=== PATIENT | female | born 1995 | race African-American/Black ===

== ENCOUNTER 2016-09-27 11:56 | Emergency (ER) | payer SELFPAY ==
[2016-09-27 12:41] LABS: Bilirubin Negative (Negative); Blood, Urine Negative (Negative); Glucose, Urine (Dipstick) Negative (Negative); Ketone, Urine Trace mg/dL (Negative); Nitrite Negative (Negative); Protein, Urine (Dipstick) Trace mg/dL (Neg-Trace)
[2016-09-27] MEDS ORDERED: Ibuprofen 200 MG TAB ONE (13:45)
--- NOTE | 2016-09-27 13:51 | ERRECORD ---
[facility] EMERGENCY RECORD HPI COUGH (13:33 JROB) CHIEF COMPLAINT: Patient presents for evaluation of cough, Patient presents for evaluation of Congestion, Sore throat. HISTORIAN: History provided by patient, 21 year old female with cough, sore throat, sneezing, body aches, subjective fever that started yesterday. Her 3 year old daughter had runny nose recently, but no other symptoms. QUALITY: Denies choking sensation. TIME COURSE: Gradual onset of symptoms. ASSOCIATED WITH: No associated chest pain, No associated diarrhea, Associated with fever, No associated peripheral edema, No associated wheezing. EXACERBATED BY: Patient's condition exacerbated by nothing. RELIEVED BY: Patient's condition relieved by nothing. ROS (13:35 JROB) CONSTITUTIONAL: Historian reports fever. EYES: Historian denies vision changes. ENT: Historian reports sore throat. CARDIOVASCULAR: Historian denies chest pain, denies syncope. RESPIRATORY: Historian reports cough, denies wheezing. GI: Historian denies diarrhea, denies vomiting. GENITOURINARY FEMALE: Historian denies dysuria, reports frequency. period is 4 days late. MUSCULOSKELETAL: Historian reports myalgias. SKIN: Historian denies rash. HEMO/LYMPHATIC: Historian denies abnormal blood clotting. ALLERGIC/IMMUNOLOGIC: Historian denies frequent infections. NOTES: All systems reviewed, negative except as described above. PAST MEDICAL HISTORY MEDICAL HISTORY: Flu vaccine not up to date, Tetanus immunization up to date, Pneumococcal vaccine not up to date, Notes: HX OF OVARIAN CYST, Flu vaccine not up to date, Tetanus immunization up to date, Pneumococcal vaccine not up to date, Past medical history includes renal disease, CYST ON KIDNEYS. Anemia , takes Iron tablets. (12:09 CAWO) FEMALE SURGICAL HISTORY: Surgical history of section. (12:09 CAWO) PSYCHIATRIC HISTORY: Psychiatric history includes, bipolar disorder, depression. (12:09 CAWO) SOCIAL HISTORY: Patient denies alcohol use, Patient denies drug use, Patient has no smoking history, Lives at home, with family, Patient denies alcohol use, Patient denies drug use, Patient has no smoking history. (12:09 CAWO) FAMILY HISTORY: Family history is non-contributory to this case. (12:09 CAWO) NOTES: Nursing records reviewed, Agree with nursing records, Medication list reviewed. (13:37 JROB) &a-1R&a+25V*p+0X*f8660M*c202B*c15G*c2P*p-0X&a-25V&a+1R Name: Gabby Foy : 1995 F21 MedRec: [id number] AcctNum: [id number] Prepared: Gia Sep 27, 2016 13:58 by Interface Page 1 of 3 pMD [facility] EMERGENCY RECORD KNOWN ALLERGIES No Known Drug Allergies CURRENT MEDICATIONS (12:08 CAWO) None VITAL SIGNS VITAL SIGNS: BP: 136/77, Pulse: 84, Resp: 16, Temp: 98.0 (Oral), Pain: 0, O2 sat: 99 on Room Air, Time: 09/27/2016 12:07. (12:07 CAWO) BP: 132/77, Pulse: 79, Resp: 16, Temp: 98.1, Pain: 0, O2 sat: 98 on RA, Time: 09/27/2016 13:53. (13:53 CKNU) PHYSICAL EXAM (13:36 JROB) CONSTITUTIONAL: Vital Signs Reviewed, Patient afebrile, Pulse normal, Blood pressure normal, Respiratory rate normal, Normal pulse oximetry, Patient alert and oriented to person, place and time, Nursing notes reviewed. HEAD: Head exam normal, Head exam included findings of head atraumatic. EYES: Eye exam normal, Pupils equally round and reactive to light, Extraocular muscles intact. ENT: Nose exam normal, Pharynx, injected bilaterally, no swelling, Mouth exam normal. NECK: Neck exam normal, no cervical adenopathy, no tenderness. RESPIRATORY CHEST: Breath sounds clear, No wheezing, No rales, No rhonchi. CARDIOVASCULAR: Cardiovascular assessment normal, Cardiovascular exam included findings of heart rate regular rate and rhythm, Heart sounds normal. ABDOMEN FEMALE: Abdominal exam included findings of abdomen nontender, no distension, no peritoneal signs. BACK: Back exam normal, Back exam included findings of normal inspection. UPPER EXTREMITY: Upper extremity exam normal, Upper extremity exam included findings of inspection normal, Motor strength normal, Sensation intact. NEURO: Neuro exam findings include patient oriented to person, place and time, no focal motor deficits, no focal sensory deficits. SKIN: Skin exam normal, Skin exam included findings of skin warm, dry, no rash. LYMPHATIC: Lymphatic exam normal. MEDICATION ADMINISTRATION SUMMARY Drug Name: ibuprofen, Dose Ordered: 600 mg, Route: Oral, Status: Given, Time: 13:47 09/27/2016, Detailed record available in Medication Service section. DOCTOR NOTES TEXT: Patient afebrile, well appearing. Ordered flu, strep, &a-1R&a+25V*p+0X*x7762S*c202B*c15G*c2P*p-0X&a-25V&a+1R Name: Gabby Foy : 1995 F21 MedRec: [id number] AcctNum: [id number] Prepared: Gia Sep 27, 2016 13:58 by Interface Page 2 of 3 pMD [facility] EMERGENCY RECORD UA, urine HCG. (13:37 JROB) Workup negative, patient is not . She likely has a viral infection. Discussed continuing OTX meds as needed. Will d/c home to f/u in clinic. (13:38 JROB) PATIENT STATUS: Patient has improved since arrival to emergency department. (13:38 JROB) PATIENT PLAN: The patient will be discharged, The patient will follow up with primary care physician. (13:38 JROB) DATA REVIEWED: Lab data reviewed. (13:38 JROB) PROBLEM LIST No recorded problems DIAGNOSIS DIFFERENTIAL: Based on history, exam and ancillary studies if indicated: Impression: viral pharyngitis, Impression: group A stretococcal pharyngitis, Impression: pharyngitis, Impression: Viral Infection, Influenza, UTI, , Diagnoses considered are not limited to those documented above. (13:39 JROB) FINAL: PRIMARY: Viral infection. (13:40 JROB) PRESCRIPTION No recorded prescriptions DISPOSITION PATIENT: Disposition Type: Discharge, Disposition: *Discharge Home. (13:40 JROB) Patient left the department. (13:53 CKNU) Eden: AMANDAO=CARY Engel, Nancy CKNU=CARY Mckeon, Betsy JROB=MD Julio C, Jose &a-1R&a+25V*p+0X*z5220Y*c202B*c15G*c2P*p-0X&a-25V&a+1R Name: Gabby Foy : 1995 F21 MedRec: [id number] AcctNum: [id number] Prepared: Gia Sep 27, 2016 13:58 by Interface Page 3 of 3 pMD MTDD
--- NOTE | 2016-09-27 13:54 | PICIS ---
[facility] EMERGENCY RECORD TRIAGE (12:08 CAWO) TRIAGE NOTES: PT reports congestion, sore throat. PT also c/o LMP sep 01. (12:08 CAWO) PATIENT: NAME: Gabby Foy, AGE: 21, GENDER: female, : Wed1995, TIME OF GREET: Sun Sep 27, 2016 11:57, PREFERRED LANGUAGE: [place], ETHNICITY: Not or , ECODE BILLING MAP: [facility], SSN: [id number], Zip Code: [address], KG WEIGHT: 54.43, PHONE: , , , PERSON ID: [id number]. (12:08 CAWO) COMPLAINT: Congestion. (12:08 CAWO) ADMISSION: URGENCY: 4 Non Urgent, ADMISSION SOURCE: Home, TRANSPORT: Walk-in, BED: ER -05. (12:08 CAWO) IMMUNIZATIONS: Flu vaccine up to date, Tetanus immunization up to date. (12:09 CAWO) SIRS SCORING: Heart Rate 55-109 (0), Temp range 96.8-101.1 (0), respiratory rate 12-24 (0), Mental Status altered: no (0), Infection or Suspected Infection: No. (12:09 CAWO) PROVIDERS: TRIAGE NURSE: Nancy Engel RN. (12:08 CAWO) VITAL SIGNS: BP 136/77, Pulse 84, Resp 16, Temp 98.0, (Oral), Pain 0, O2 Sat 99, on Room Air, Time 09/27/2016 12:07. (12:07 CAWO) PREVIOUS VISIT ALLERGIES: No Known Drug Allergies. (12:08 CAWO) No Known Drug Allergies. (12:09 CAWO) KNOWN ALLERGIES No Known Drug Allergies CURRENT MEDICATIONS (12:08 CAWO) None VITAL SIGNS VITAL SIGNS: BP: 136/77, Pulse: 84, Resp: 16, Temp: 98.0 (Oral), Pain: 0, O2 sat: 99 on Room Air, Time: 09/27/2016 12:07. (12:07 CAWO) BP: 132/77, Pulse: 79, Resp: 16, Temp: 98.1, Pain: 0, O2 sat: 98 on RA, Time: 09/27/2016 13:53. (13:53 CKNU) NURSING ASSESSMENT: ENT (12:11 CKNU) CONSTITUTIONAL: Patient arrives ambulatory, Gait steady, History obtained from patient, Patient appears comfortable, Patient cooperative, Patient alert, Oriented to person, place and time, Skin warm, Skin dry, Skin normal in color, Mucous membranes pink, Mucous membranes moist, Patient, with poor personal hygiene, Patient complains of congestion, pt reports nausea and congestion since Wednesday. reports dry cough. no smoking, drinking, or drug use. Pt reports feeling chills yesterday, denies night sweats, felt feverish but did not take temperature. denies vomiting, constipation, diarrhea, denies pain. PAIN: Patient rates pain as 0 out of 10. ENT: Ear assessment findings include ear normal to inspection, no drainage from ears, Nasal assessment findings include nose normal to &a-1R&a+25V*p+0X*c8760U*c202B*c15G*c2P*p-0X&a-25V&a+1R Name: Gabby Foy : 1995 F21 MedRec: [id number] AcctNum: [id number] Prepared: Gia Sep 27, 2016 13:58 by Interface Page 1 of 8 pMD [facility] EMERGENCY RECORD inspection, Sinuses normal, Nasal mucosa, swollen, no bleeding, no discharge, Mouth and throat assessment findings include mouth inspection normal, Uvula normal, Tonsils, swollen +2 on the right, Mucous membranes pink, and moist, Able to swallow, Speech normal, no associated fever, no associated headache. RESPIRATORY/CHEST: Breath sounds clear, Respiratory assessment findings include respiratory effort easy, Respirations regular, Conversing normally, Neck and chest exam findings include trachea midline, Chest expansion equal, Chest movement symmetrical, no signs of distress, no retractions noted, Associated with cough, dry, no associated fever. SAFETY: Side rails up, Cart/Stretcher in lowest position, Family at bedside, Call light within reach, Hospital ID band on. NURSING PROCEDURE: DISCHARGE NOTE (13:53 CKNU) DISCHARGE: Patient discharged to home, ambulating without assistance, family driving, accompanied by //partner, Summary of Care printed/ provided, Transition record given to patient, Discharge instructions given to patient, Simple or moderate discharge teaching performed, by CARY Meyer, Prescriptions given and instructions on side effects given, Above person(s) verbalized understanding of discharge instructions and follow-up care, Patient treated and evaluated by physician. BELONGINGS: Belongings and valuables with patient upon arrival to the Emergency Department include:, Belongings and valuables with patient at time of discharge include:, Belongings remain with patient, Valuables remain with patient. SAFETY: Side rails up, Cart/Stretcher in lowest position, Family at bedside, Call light within reach, Hospital ID band on. VITAL SIGNS: BP: 132, / 77, Pulse: 79, Resp: 16, Temp: 98.1, Pain: 0, O2 sat: 98, on: RA. NURSING PROCEDURE: NURSE NOTES (13:55 CKNU) NURSES NOTES: Notes: away from pt bedside d/t code blue. ORDER DETAILS Order Name: Culture, Urine, Status: Active, Time: 12:26 09/27/2016, User: KIM, - Ordered for: MD Bunch Joseph, - Entered by: MD Bunch Joseph - Gia Sep 27, 2016 12:26, - Quantity: 1, Order Name: Influenza A&B Ag Screen, Status: Active, Time: 12:26 09/27/2016, User: KIM, - Ordered for: MD Bunch Joseph, - Entered by: MD Bunch Joseph - Gia Sep 27, 2016 12:26, - Quantity: 1, Order Name: Test, Urine (BHCG), Status: Active, Time: 12:26 &a-1R&a+25V*p+0X*j4263W*c202B*c15G*c2P*p-0X&a-25V&a+1R Name: Gabby Foy : 1995 F21 MedRec: [id number] AcctNum: [id number] Prepared: Gia Sep 27, 2016 13:58 by Interface Page 2 of 8 pMD [facility] EMERGENCY RECORD 09/27/2016, User: KIM, - Ordered for: MD Bunch Joseph, - Entered by: MD Bunch Joseph - Sun Sep 27, 2016 12:26, - Quantity: 1, Order Name: Strep Group A Screen, Status: Active, Time: 12:26 09/27/2016, User: KIM, - Ordered for: MD Bunch Joseph, - Entered by: MD Bunch Joseph - Sun Sep 27, 2016 12:26, - Quantity: 1, Order Name: Urinalysis w/ Rflx Microscopic, Status: Active, Time: 12:26 09/27/2016, User: KIM, - Ordered for: MD Bunch Joseph, - Entered by: MD Bunch Joseph - Sun Sep 27, 2016 12:26, - Quantity: 1. MEDICATION ADMINISTRATION SUMMARY Drug Name: ibuprofen, Dose Ordered: 600 mg, Route: Oral, Status: Given, Time: 13:47 09/27/2016, Detailed record available in Medication Service section. MEDICATION SERVICE (13:47 JROB) ibuprofen: Order: ibuprofen - Dose: 600 mg : Oral Schedule: Now Ordered by: Jose Bunch MD Entered by: MD Gia Rivas Sep 27, 2016 12:25 , Acknowledged by: CARY Garcia Sep 27, 2016 12:29 Documented as given by: CARY Bailey Sep 27, 2016 13:47 Patient, Medication, Dose, Route and Time verified prior to administration. Amount given: 600mg, Site: Medication administered P.O., Correct patient, time, route, dose and medication confirmed prior to administration, Patient advised of actions and side-effects prior to administration, Allergies confirmed and medications reviewed prior to administration. HPI COUGH (13:33 JROB) CHIEF COMPLAINT: Patient presents for evaluation of cough, Patient presents for evaluation of Congestion, Sore throat. HISTORIAN: History provided by patient, 21 year old female with cough, sore throat, sneezing, body aches, subjective fever that started yesterday. Her 3 year old daughter had runny nose recently, but no other symptoms. QUALITY: Denies choking sensation. TIME COURSE: Gradual onset of symptoms. ASSOCIATED WITH: No associated chest pain, No associated diarrhea, Associated with fever, No associated peripheral edema, No associated wheezing. EXACERBATED BY: Patient's condition exacerbated by nothing. RELIEVED BY: Patient's condition relieved by nothing. &a-1R&a+25V*p+0X*l3046L*c202B*c15G*c2P*p-0X&a-25V&a+1R Name: Gabby Foy : 1995 F21 MedRec: [id number] AcctNum: [id number] Prepared: Gia Sep 27, 2016 13:58 by Interface Page 3 of 8 pMD [facility] EMERGENCY RECORD ROS (13:35 JROB) CONSTITUTIONAL: Historian reports fever. EYES: Historian denies vision changes. ENT: Historian reports sore throat. CARDIOVASCULAR: Historian denies chest pain, denies syncope. RESPIRATORY: Historian reports cough, denies wheezing. GI: Historian denies diarrhea, denies vomiting. GENITOURINARY FEMALE: Historian denies dysuria, reports frequency. period is 4 days late. MUSCULOSKELETAL: Historian reports myalgias. SKIN: Historian denies rash. HEMO/LYMPHATIC: Historian denies abnormal blood clotting. ALLERGIC/IMMUNOLOGIC: Historian denies frequent infections. NOTES: All systems reviewed, negative except as described above. PAST MEDICAL HISTORY MEDICAL HISTORY: Flu vaccine not up to date, Tetanus immunization up to date, Pneumococcal vaccine not up to date, Notes: HX OF OVARIAN CYST, Flu vaccine not up to date, Tetanus immunization up to date, Pneumococcal vaccine not up to date, Past medical history includes renal disease, CYST ON KIDNEYS. Anemia , takes Iron tablets. (12:09 CAWO) FEMALE SURGICAL HISTORY: Surgical history of section. (12:09 CAWO) PSYCHIATRIC HISTORY: Psychiatric history includes, bipolar disorder, depression. (12:09 CAWO) SOCIAL HISTORY: Patient denies alcohol use, Patient denies drug use, Patient has no smoking history, Lives at home, with family, Patient denies alcohol use, Patient denies drug use, Patient has no smoking history. (12:09 CAWO) FAMILY HISTORY: Family history is non-contributory to this case. (12:09 CAWO) NOTES: Nursing records reviewed, Agree with nursing records, Medication list reviewed. (13:37 JROB) PHYSICAL EXAM (13:36 JROB) CONSTITUTIONAL: Vital Signs Reviewed, Patient afebrile, Pulse normal, Blood pressure normal, Respiratory rate normal, Normal pulse oximetry, Patient alert and oriented to person, place and time, Nursing notes reviewed. HEAD: Head exam normal, Head exam included findings of head atraumatic. EYES: Eye exam normal, Pupils equally round and reactive to light, Extraocular muscles intact. ENT: Nose exam normal, Pharynx, injected bilaterally, no swelling, Mouth exam normal. NECK: Neck exam normal, no cervical adenopathy, no tenderness. RESPIRATORY CHEST: Breath sounds clear, No wheezing, No rales, No rhonchi. &a-1R&a+25V*p+0X*q9124S*c202B*c15G*c2P*p-0X&a-25V&a+1R Name: Gabby oFy : 1995 F21 MedRec: [id number] AcctNum: [id number] Prepared: Gia Sep 27, 2016 13:58 by Interface Page 4 of 8 pMD [facility] EMERGENCY RECORD CARDIOVASCULAR: Cardiovascular assessment normal, Cardiovascular exam included findings of heart rate regular rate and rhythm, Heart sounds normal. ABDOMEN FEMALE: Abdominal exam included findings of abdomen nontender, no distension, no peritoneal signs. BACK: Back exam normal, Back exam included findings of normal inspection. UPPER EXTREMITY: Upper extremity exam normal, Upper extremity exam included findings of inspection normal, Motor strength normal, Sensation intact. NEURO: Neuro exam findings include patient oriented to person, place and time, no focal motor deficits, no focal sensory deficits. SKIN: Skin exam normal, Skin exam included findings of skin warm, dry, no rash. LYMPHATIC: Lymphatic exam normal. LAB INTERPRETATION (13:38 JROB) INTERPRETATION: I reviewed the lab results, Urinalysis abnormal, positive for ketones, Urine HCG negative, Rapid strep negative, Influenza negative. EVENTS TRANSFER: Triage to Emergency Emergency Room -05. (Gia Sep 27, 2016 12:08 CAWO) Removed from Emergency Emergency Room -05. (13:53 CKNU) O2SAT INTERPRETATION (13:37 JROB) O2SAT: Single pulse oximetry, Oxygen saturation 99%, on room air, Oxygen saturation interpretation: Normal, No intervention required. DOCTOR NOTES TEXT: Patient afebrile, well appearing. Ordered flu, strep, UA, urine HCG. (13:37 JROB) Workup negative, patient is not . She likely has a viral infection. Discussed continuing OTX meds as needed. Will d/c home to f/u in clinic. (13:38 JROB) PATIENT STATUS: Patient has improved since arrival to emergency department. (13:38 JROB) PATIENT PLAN: The patient will be discharged, The patient will follow up with primary care physician. (13:38 JROB) DATA REVIEWED: Lab data reviewed. (13:38 JROB) PROBLEM LIST No recorded problems DIAGNOSIS DIFFERENTIAL: Based on history, exam and ancillary studies if indicated: Impression: viral pharyngitis, Impression: group A stretococcal pharyngitis, Impression: pharyngitis, Impression: Viral Infection, Influenza, UTI, &a-1R&a+25V*p+0X*c3868U*c202B*c15G*c2P*p-0X&a-25V&a+1R Name: Gabby Foy : 1995 F21 MedRec: [id number] AcctNum: [id number] Prepared: Gia Sep 27, 2016 13:58 by Interface Page 5 of 8 pMD [facility] EMERGENCY RECORD , Diagnoses considered are not limited to those documented above. (13:39 JROB) FINAL: PRIMARY: Viral infection. (13:40 JROB) DISPOSITION PATIENT: Disposition Type: Discharge, Disposition: *Discharge Home. (13:40 JROB) Patient left the department. (13:53 CKNU) INSTRUCTION (13:40 JROB) DISCHARGE: VIRAL SYNDROME (ADULT). FOLLOWUP: Follow up with Primary Care Physician in 5 days. SPECIAL: Follow-up with your PCP We hope you feel better soon! We are always happy to take care of you and your family! Return to the ER immediately for any new, concerning, or worsening symptoms. PRESCRIPTION No recorded prescriptions IMAGING (13:56 CKNU) *DISCHARGE INSTRUCTIONS RECEIPT: Image captured from scanner. *SUPPLY CHARGE SHEET: Image captured from scanner. ADMIN (13:40 JROB) DIGITAL SIGNATURE: MD Bunch Joseph. RESULTS (13:26 JROB) MICROBIOLOGY: Strep Group A Screen: [id number] Collection DT: Gia Sep 27, 2016 12:40, See comment below , @ ER ROOM#: ER-05 Source: Throat Spec Desc: PENDING, Strep A Negative CDC recommends , confirmation by , culture on all , negative , Strep negative line 1 Group A , Streptococcus rapid , screens. Please , order , Strep negative line 2 a throat culture if , clinically , indicated. , Rapid Strep Screen:Throat Negative . Influenza A&B Ag Screen: [id number] Collection DT: Gia Sep 27, 2016 12:40, See comment below , @ ER ROOM#: ER-05 Source: Nasal swab Spec Desc: , &a-1R&a+25V*p+0X*l7405F*c202B*c15G*c2P*p-0X&a-25V&a+1R Name: Gabby Foy : 1995 F21 MedRec: [id number] AcctNum: [id number] Prepared: Gia Sep 27, 2016 13:58 by Interface Page 6 of 8 pMD [facility] EMERGENCY RECORD Influenza A Antigen: NEGATIVE for the , presence of , INFLUENZA A Antigen , Influenza B Antigen: NEGATIVE for the , presence of , INFLUENZA B Antigen , The rapid Flu A&B test can distinguish between influenza A , Influenza A&B Ag Screen See comment below , and B viruses, but it does not differentiate influenza , Influenza A&B Ag Screen See comment below , subtypes. , Influenza A&B Ag Screen See comment below , Influenza A&B Ag Screen See comment below , Influenza A&B Ag Screen See comment below , Influenza A&B Ag Screen See comment below , characteristics of this device with human specimens infected , Influenza A&B Ag Screen See comment below , with the 2008 H1N1 influenza virus have not been , Influenza A&B Ag Screen See comment below , established. For example: this test cannot distinguish , Influenza A&B Ag Screen See comment below , influenza infections caused by novel H1N1 influenza A , Influenza A&B Ag Screen See comment below , viruses versus seasonal influenza A viruses. , Influenza A&B Ag Screen See comment below , , Influenza A&B Ag Screen See comment below , A negative result does not exclude influenza virus , Influenza A&B Ag Screen See comment below , infection; therefore, if more conclusive testing is desired, , Influenza A&B Ag Screen See comment below , follow up confirmatory testing is warranted., Influenza A&B Ag Screen See comment below . LABORATORY: Test, Urine (BHCG) Collection DT: Gia Sep 27, 2016 12:35, Test - Urine (BHCG) NEGATIVE , Range (NEGATIVE), Method of sensitivity- Indeterminant: results should be repeated, after 48 hours. Positive: results may be detected as early as 4-5 days before a first missed menses. Elimination of BHCG-, Elimination following first trimester D&C: 29-44 Days , Elimination following term : 8-24 Days , Specific [place] 1.032 , Range (1.002-1.036), A dilute urine specimen may, not contain customer account representative levels of hCG. If is still, suspected, a first morning urine &a-1R&a+25V*p+0X*s8558B*c202B*c15G*c2P*p-0X&a-25V&a+1R Name: Gabby Foy : 1995 F21 MedRec: [id number] AcctNum: [id number] Prepared: Gia Sep 27, 2016 13:58 by Interface Page 7 of 8 [facility] EMERGENCY RECORD specimen OR a random blood specimen should, be obtained from the patient 48-72 hours later and re-tested. , . Urinalysis w/ Rflx Microscopic Collection DT: Gia Sep 27, 2016 12:35, Color Yellow , Range (Yellow), Clarity SL HAZY , Range (Clear), Specific [place], Urine 1.032 , Range (1.002-1.036), pH, Urine 6.0 , Range (5.0-9.0), Leukocyte Negative , Range (Negative), Nitrite Negative , Range (Negative), Protein, Urine (Dipstick) Trace mg/dL, Range (Neg-Trace), Glucose, Urine (Dipstick) Negative mg/dL, Range (Negative), *Ketone, Urine Trace - H mg/dL, Range (Negative), Urobilinogen 1.0 mg/dL, Range (0.2-1.0), Bilirubin Negative , Range (Negative), Blood, Urine Negative , Range (Negative). Eden: CAWO=CARY Engel, Nancy CKNU=CARY Mckeon, Betsy JROB=MD Julio C, Jose &a-1R&a+25V*p+0X*c2903M*c202B*c15G*c2P*p-0X&a-25V&a+1R Name: Gabby Foy : 1995 F21 MedRec: [id number] AcctNum: [id number] Prepared: Gia Sep 27, 2016 13:58 by Interface Page 8 of 8 pMD MTDD
== END 2016-09-27 13:53 | disposition home or self-care (01) ==
LOC: NAV ERS 11:56
DX: B34.9 Viral infection, unspecified (principal); D64.9 Anemia, unspecified; F31.9 Bipolar disorder, unspecified
CPT/HCPCS: 81003; 81025; 87086; 87430; 99283

== ENCOUNTER 2017-04-01 20:57 | Emergency (ER) | payer SELFPAY | END 2017-04-01 21:43 | disposition home or self-care (01) | LOC: NAV ERS 20:57 | DX: H60.92 Unspecified otitis externa, left ear (principal); F31.9 Bipolar disorder, unspecified; Z87.891 Personal history of nicotine dependence | CPT/HCPCS: 99282 ==

== ENCOUNTER 2018-03-07 16:48 | Emergency (ER) | payer SELFPAY ==
[2018-03-07 17:46] LABS: #Lymphocytes 1.2 thou/uL (1.20-3.40); #Monocytes 0.6 thou/uL (0.11-0.59); %Basophils 0.6 % (0.0-1.0); %Eosinophils 0.1 % (0.0-10.0); %Monocytes 7.1 % (0.0-10.0); %Neutrophils 77.2 % (42.0-75.0); Hemoglobin 11.4 g/dL (12.0-16.0); Mean Corpuscular HGB CONC 33.1 g/dL (32.0-36.0); Mean Corpuscular Hemoglobin 25.7 pg (27.0-31.0); Mean Corpuscular Volume 77.8 fL (78.0-98.0); Mean Platelet Volume 7.1 fL (7.4-10.4); Platelet Count 180 thou/uL (130-400); RBC Distribution Width 15.2 % (11.5-14.5); Red Blood Cell (RBC) Count 4.42 mill/uL (4.20-5.40); White Blood Cell (WBC) Count 7.8 thou/uL (4.8-10.8)
[2018-03-07 17:49] LABS: Bilirubin Small (Negative); Blood, Urine Negative (Negative); Clarity Clear (Clear); Glucose, Urine (Dipstick) Negative (Negative); Leukocyte Negative (Negative); Nitrite Negative (Negative); Protein, Urine (Dipstick) 30 mg/dL (Neg-Trace); Specific Gravity, Urine 1.025 (1.005-1.030)
[2018-03-07 17:53] LABS: Bacteria/HPF Rare-Few HPF (None Seen); RBC/HPF 0-3 HPF (0-3)
[2018-03-07 18:07] LABS: ALT (SGPT) 7 U/L (8-55); AST (SGOT) 14 U/L (5-34); Albumin 3.9 g/dL (3.5-5.0); Alkaline Phosphatase 81 U/L (40-150); Anion Gap 14 mmol/L (10-20); BUN (Urea Nitrogen) 7 mg/dL (7.0-18.7); Bilirubin, Total 0.3 mg/dL (0.2-1.2); Calc. Creatinine Clearance 0 mL/min (70-130); Calcium 9.9 mg/dL (7.8-10.44); Carbon Dioxide 23 mmol/L (22-29); Chloride 103 mmol/L (98-107); Estimated GFR-MDRD Greater than 90; Globulin 3.6 g/dL (2.4-3.5); Glucose 102 mg/dL (70-105); Potassium 3.9 mmol/L (3.5-5.1); Protein, Total 7.5 g/dL (6.0-8.3); Sodium 136 mmol/L (136-145)
== END 2018-03-07 18:16 | disposition home or self-care (01) ==
LOC: NAV ERS 16:48
DX: O99.89 Other specified diseases and conditions complicating pregnancy, childbirth and the puerperium (principal); R55 Syncope and collapse; O99.011 Anemia complicating pregnancy, first trimester; O26.831 Pregnancy related renal disease, first trimester; Q61.3 Polycystic kidney, unspecified; O99.341 Other mental disorders complicating pregnancy, first trimester; F31.9 Bipolar disorder, unspecified; Z3A.13 13 weeks gestation of pregnancy
CPT/HCPCS: 36416; 80053; 81003; 81015; 84702; 85025; 93005

== ENCOUNTER 2018-03-17 12:53 | Emergency (ER) | payer SELFPAY ==
[2018-03-17 14:02] LABS: #Lymphocytes 1.4 thou/uL (1.20-3.40); #Monocytes 0.6 thou/uL (0.11-0.59); #Neutrophils 5.5 thou/uL (1.40-6.50); %Basophils 0.4 % (0.0-1.0); %Eosinophils 0.4 % (0.0-10.0); %Lymphocytes 18.3 % (21.0-51.0); %Monocytes 7.5 % (0.0-10.0); %Neutrophils 73.4 % (42.0-75.0); Hemoglobin 11.3 g/dL (12.0-16.0); Mean Corpuscular Hemoglobin 25.7 pg (27.0-31.0); Mean Corpuscular Volume 80.2 fL (78.0-98.0); Mean Platelet Volume 7.5 fL (7.4-10.4); Platelet Count 180 thou/uL (130-400); RBC Distribution Width 15.6 % (11.5-14.5); Red Blood Cell (RBC) Count 4.39 mill/uL (4.20-5.40); White Blood Cell (WBC) Count 7.5 thou/uL (4.8-10.8)
[2018-03-17 14:32] LABS: ALT (SGPT) 7 U/L (8-55); AST (SGOT) 15 U/L (5-34); Albumin 3.7 g/dL (3.5-5.0); Alkaline Phosphatase 70 U/L (40-150); Anion Gap 13 mmol/L (10-20); BUN (Urea Nitrogen) 6 mg/dL (7.0-18.7); Bilirubin, Total 0.4 mg/dL (0.2-1.2); Calc. Creatinine Clearance 0 mL/min (70-130); Calcium 9.6 mg/dL (7.8-10.44); Carbon Dioxide 22 mmol/L (22-29); Chloride 101 mmol/L (98-107); Estimated GFR-MDRD Greater than 90; Globulin 3.5 g/dL (2.4-3.5); Glucose 98 mg/dL (70-105); Potassium 3.6 mmol/L (3.5-5.1); Protein, Total 7.2 g/dL (6.0-8.3); Sodium 132 mmol/L (136-145)
[2018-03-17] MEDS ORDERED: Sodium Chloride 0.9% 1,000 ML ONE (14:50)
[2018-03-17] MEDS ORDERED: Acetaminophen 500 MG TAB ONE (14:50)
[2018-03-17 15:54] LABS: Bilirubin Negative (Negative); Blood, Urine Negative (Negative); Clarity Clear (Clear); Glucose, Urine (Dipstick) Negative (Negative); Leukocyte Trace (Negative); Nitrite Negative (Negative); Protein, Urine (Dipstick) Negative (Neg-Trace)
[2018-03-17 16:06] LABS: Bacteria/HPF Rare-Few HPF (None Seen); RBC/HPF 0-3 HPF (0-3); WBC/HPF 0-3 HPF (0-3)
--- NOTE | 2018-03-17 16:24 | ULT ---
OB ULTRASOUND: 03/17/18 HISTORY: Left lower quadrant and back pain. FINDINGS: A single live intrauterine gestation is seen with measurements corresponding to an estimated gestatio nal of 15 weeks, 0 days and DNE at 09/08/18. The estimated weight measures 104 grams or 4 oz. measurements are as follows: BPD 2.75 cm 14 weeks, 6 days HC 10.39 cm 14 weeks, 6 days AC 8.77 cm 15 weeks, 0 days FL 1.46 cm 14 weeks, 2 days heart rate measures 129 beats per minute. Placenta is posteriorly located with placenta previa. WANDA is 7 cm. IMPRESSION: 1. Single live IUP of 15 weeks estimated gestational age and DEN at 09/08/18. 2. WANDA is 7 cm. 3. Placenta previa. 1. POS: FRANCA
== END 2018-03-17 16:24 | disposition home or self-care (01) ==
LOC: NAV ERS 12:53
DX: S39.012A Strain of muscle, fascia and tendon of lower back, initial encounter (principal); N30.00 Acute cystitis without hematuria; J01.80 Other acute sinusitis; E86.0 Dehydration; E87.1 Hypo-osmolality and hyponatremia; D64.9 Anemia, unspecified; F31.9 Bipolar disorder, unspecified; Z79.899 Other long term (current) drug therapy; X58.XXXA Exposure to other specified factors, initial encounter
CPT/HCPCS: 76805; 80053; 81003; 81015; 85025; 96360; J7050

== ENCOUNTER 2018-04-11 12:14 | Emergency (ER) | payer MEDICAID, OTHER ==
[2018-04-11] MEDS ORDERED: Sodium Chloride 0.9% 1,000 ML ONE ×2 (12:36→13:48)
[2018-04-11 12:55] LABS: ALT (SGPT) 7 U/L (8-55); AST (SGOT) 14 U/L (5-34); Albumin 3.4 g/dL (3.5-5.0); Alkaline Phosphatase 87 U/L (40-150); Anion Gap 13 mmol/L (10-20); BUN (Urea Nitrogen) 6 mg/dL (7.0-18.7); Bilirubin, Total 0.3 mg/dL (0.2-1.2); Calc. Creatinine Clearance 0 mL/min (70-130); Calcium 9.3 mg/dL (7.8-10.44); Carbon Dioxide 20 mmol/L (22-29); Chloride 105 mmol/L (98-107); Estimated GFR-MDRD Greater than 90; Globulin 3.5 g/dL (2.4-3.5); Glucose 113 mg/dL (70-105); Potassium 3.4 mmol/L (3.5-5.1); Protein, Total 6.9 g/dL (6.0-8.3); Sodium 135 mmol/L (136-145)
[2018-04-11 12:58] LABS: #Lymphocytes 1.2 thou/uL (1.20-3.40); #Monocytes 0.4 thou/uL (0.11-0.59); #Neutrophils 4.6 thou/uL (1.40-6.50); %Basophils 0.4 % (0.0-1.0); %Eosinophils 0.5 % (0.0-10.0); %Lymphocytes 19.6 % (21.0-51.0); %Monocytes 6.2 % (0.0-10.0); %Neutrophils 73.3 % (42.0-75.0); Hemoglobin 10.6 g/dL (12.0-16.0); Mean Corpuscular HGB CONC 33.3 g/dL (32.0-36.0); Mean Corpuscular Hemoglobin 26.9 pg (27.0-31.0); Mean Corpuscular Volume 80.8 fL (78.0-98.0); Mean Platelet Volume 6.2 fL (7.4-10.4); Platelet Count 168 thou/uL (130-400); RBC Distribution Width 13.9 % (11.5-14.5); Red Blood Cell (RBC) Count 3.96 mill/uL (4.20-5.40); White Blood Cell (WBC) Count 6.3 thou/uL (4.8-10.8)
[2018-04-11] MEDS ORDERED: Ondansetron HCl/PF 4 MG/2 ML Vial ONE (13:48)
[2018-04-11 13:50] LABS: Bilirubin Negative (Negative); Blood, Urine Negative (Negative); Clarity Slightly Cloudy (Clear); Glucose, Urine (Dipstick) Negative (Negative); Leukocyte Small (Negative); Nitrite Negative (Negative); Protein, Urine (Dipstick) Negative (Neg-Trace)
[2018-04-11 13:52] LABS: Bacteria/HPF Rare-Few HPF (None Seen); RBC/HPF 0-3 HPF (0-3); WBC/HPF 0-3 HPF (0-3)
== END 2018-04-11 15:01 | disposition home or self-care (01) ==
LOC: NAV ERS 12:14
DX: E86.0 Dehydration (principal); R55 Syncope and collapse; R11.10 Vomiting, unspecified; D64.9 Anemia, unspecified; F31.9 Bipolar disorder, unspecified; Q61.3 Polycystic kidney, unspecified; Z79.899 Other long term (current) drug therapy
CPT/HCPCS: 80053; 81003; 81015; 85025; 93005; 96361; 96374; J2405; J7050

== ENCOUNTER 2018-07-11 12:47 | Emergency (ER) | payer OTHER ==
[2018-07-11 14:11] LABS: Bilirubin Small (Negative); Blood, Urine Small (Negative); Clarity Clear (Clear); Glucose, Urine (Dipstick) 100 mg/dL (Negative); Leukocyte Small (Negative); Nitrite Negative (Negative); Protein, Urine (Dipstick) 100 mg/dL (Neg-Trace); Urobilinogen > or = 8.0 mg/dL (0.2-1.0)
[2018-07-11 14:13] LABS: #Basophils 0.1 thou/uL (0.0-0.2); #Eosinphils 0.1 thou/uL (0.0-0.7); #Lymphocytes 0.7 thou/uL (1.20-3.40); #Monocytes 0.7 thou/uL (0.11-0.59); %Basophils 0.8 % (0.0-1.0); %Eosinophils 0.9 % (0.0-10.0); %Lymphocytes 11.1 % (21.0-51.0); %Monocytes 10.8 % (0.0-10.0); %Neutrophils 76.4 % (42.0-75.0); Hemoglobin 9.7 g/dL (12.0-16.0); Mean Corpuscular HGB CONC 30.7 g/dL (32.0-36.0); Mean Corpuscular Hemoglobin 24.2 pg (27.0-31.0); Mean Corpuscular Volume 78.6 fL (78.0-98.0); Mean Platelet Volume 6.2 fL (7.4-10.4); Platelet Count 117 thou/uL (130-400); RBC Distribution Width 14.4 % (11.5-14.5); Red Blood Cell (RBC) Count 3.99 mill/uL (4.20-5.40); White Blood Cell (WBC) Count 6.6 thou/uL (4.8-10.8)
[2018-07-11 14:15] LABS: Hypochromia SLIGHT = 6-15 cells (100X) (0-5/hpf); MDiff Complete? YES; PLT Morphology Comment Appears Adequate
[2018-07-11] MEDS ORDERED: Ondansetron PF 4 MG/2 ML Vial ONE (14:22)
[2018-07-11 14:27] LABS: Bacteria/HPF 2+ HPF (None Seen); RBC/HPF 0-3 HPF (0-3); Specific Gravity, Urine 1.034 (1.002-1.036); Squamous Epithelial 21-50 HPF (0-3); WBC/HPF 0-3 HPF (0-3)
[2018-07-11 14:30] LABS: ALT (SGPT) 8 U/L (8-55); AST (SGOT) 20 U/L (5-34); Albumin 3.5 g/dL (3.5-5.0); Alkaline Phosphatase 123 U/L (40-150); Anion Gap 14 mmol/L (10-20); BUN (Urea Nitrogen) Less than 4 mg/dL (7.0-18.7); Bilirubin, Total 0.8 mg/dL (0.2-1.2); Calc. Creatinine Clearance 0 mL/min (70-130); Carbon Dioxide 21 mmol/L (22-29); Chloride 104 mmol/L (98-107); Estimated GFR-MDRD Greater than 90; Globulin 3.7 g/dL (2.4-3.5); Glucose 81 mg/dL (70-105); Lipase 35 U/L (8-78); Potassium 3.6 mmol/L (3.5-5.1); Protein, Total 7.2 g/dL (6.0-8.3); Sodium 135 mmol/L (136-145)
== END 2018-07-11 16:03 | disposition home or self-care (01) ==
LOC: NAV ERS 12:47
DX: O21.9 Vomiting of pregnancy, unspecified (principal); O99.013 Anemia complicating pregnancy, third trimester; O99.343 Other mental disorders complicating pregnancy, third trimester; F31.9 Bipolar disorder, unspecified; Z3A.31 31 weeks gestation of pregnancy
CPT/HCPCS: 80053; 81003; 81015; 83690; 85025; 96374; J2405

== ENCOUNTER 2018-08-01 21:40 | Emergency (ER) | payer OTHER ==
[2018-08-01] MEDS ORDERED: Ondansetron ODT 4 MG TAB ONE (22:24)
== END 2018-08-01 22:49 | disposition short-term general hospital (02) ==
LOC: NAV ERS 21:40
DX: O26.93 Pregnancy related conditions, unspecified, third trimester (principal); R10.9 Unspecified abdominal pain; O99.013 Anemia complicating pregnancy, third trimester; D50.9 Iron deficiency anemia, unspecified; O99.343 Other mental disorders complicating pregnancy, third trimester; F31.9 Bipolar disorder, unspecified; Z3A.34 34 weeks gestation of pregnancy
CPT/HCPCS: 99285; Q0162

== ENCOUNTER 2018-09-09 20:25 | Emergency (ER) | payer OTHER ==
[2018-09-09] MEDS ORDERED: Acetaminophen 325 MG TAB ONE (20:54)
[2018-09-09 21:10] LABS: Bilirubin Small (Negative); Blood, Urine Large (Negative); Glucose, Urine (Dipstick) Negative (Negative); Leukocyte Moderate (Negative); Nitrite Negative (Negative); Protein, Urine (Dipstick) 100 mg/dL (Neg-Trace); Specific Gravity, Urine 1.025 (1.005-1.030)
[2018-09-09 21:22] LABS: Clarity SL HAZY (Clear)
[2018-09-09 21:24] LABS: RBC/HPF GREATER THAN 50-TNTC HPF (0-3)
[2018-09-09 21:25] LABS: Bacteria/HPF Rare-Few HPF (None Seen)
[2018-09-09 21:26] LABS: #Basophils 0.1 thou/uL (0.0-0.2); #Eosinphils 0.1 thou/uL (0.0-0.7); #Monocytes 0.5 thou/uL (0.11-0.59); #Neutrophils 3.6 thou/uL (1.40-6.50); %Basophils 0.9 % (0.0-1.0); %Eosinophils 1.9 % (0.0-10.0); %Lymphocytes 31.7 % (21.0-51.0); %Monocytes 7.2 % (0.0-10.0); %Neutrophils 58.2 % (42.0-75.0); Mean Corpuscular HGB CONC 29.5 g/dL (32.0-36.0); Mean Corpuscular Volume 74.4 fL (78.0-98.0); Mean Platelet Volume 6.5 fL (7.4-10.4); Platelet Count 323 thou/uL (130-400); RBC Distribution Width 17.6 % (11.5-14.5); Red Blood Cell (RBC) Count 4.54 mill/uL (4.20-5.40); White Blood Cell (WBC) Count 6.3 thou/uL (4.8-10.8)
[2018-09-09 21:37] LABS: ALT (SGPT) 13 U/L (8-55); AST (SGOT) 18 U/L (5-34); Alkaline Phosphatase 120 U/L (40-150); Anion Gap 14 mmol/L (10-20); BUN (Urea Nitrogen) 8 mg/dL (7.0-18.7); Bilirubin, Total 0.4 mg/dL (0.2-1.2); Calc. Creatinine Clearance 0 mL/min (70-130); Calcium 9.9 mg/dL (7.8-10.44); Carbon Dioxide 25 mmol/L (22-29); Chloride 105 mmol/L (98-107); Estimated GFR-MDRD Greater than 90; Globulin 4.1 g/dL (2.4-3.5); Glucose 92 mg/dL (70-105); Lipase 42 U/L (8-78); Potassium 3.8 mmol/L (3.5-5.1); Protein, Total 8.1 g/dL (6.0-8.3); Sodium 140 mmol/L (136-145)
== END 2018-09-09 22:18 | disposition home or self-care (01) ==
LOC: NAV ERS 20:25
DX: O90.89 Other complications of the puerperium, not elsewhere classified (principal); O99.89 Other specified diseases and conditions complicating pregnancy, childbirth and the puerperium; R10.30 Lower abdominal pain, unspecified; O99.345 Other mental disorders complicating the puerperium; F41.9 Anxiety disorder, unspecified; F31.9 Bipolar disorder, unspecified; O90.81 Anemia of the puerperium; Z79.899 Other long term (current) drug therapy
CPT/HCPCS: 80053; 81003; 81015; 83690; 85025; 87086; 99284

== ENCOUNTER 2019-01-13 15:48 | Emergency (ER) | payer OTHER | END 2019-01-13 16:33 | disposition home or self-care (01) | LOC: NAV ERS 15:48 | DX: S90.01XA Contusion of right ankle, initial encounter (principal); F31.9 Bipolar disorder, unspecified; F32.9 Major depressive disorder, single episode, unspecified; F17.210 Nicotine dependence, cigarettes, uncomplicated; W22.8XXA Striking against or struck by other objects, initial encounter | CPT/HCPCS: 99281 ==

== ENCOUNTER 2019-07-25 16:43 | Emergency (ER) | payer SELFPAY ==
[2019-07-25] MEDS ORDERED: Acetaminophen 500 MG TAB ONE (17:28)
--- NOTE | 2019-07-25 17:40 | RAD ---
RADIOGRAPH LEFT FOOT 3VIEWS: DATE: 07/25/2019 HISTORY: 24-year-old female with nontraumatic left foot pain. FINDINGS: There is no evidence of fracture or dislocation. There is no evidence of periostitis, permeative lesi on, osteolytic lesion, or osteoblastic lesion. The joint spaces are maintained without erosions or significant osteophytes. IMPRESSION: Normal
== END 2019-07-25 18:18 | disposition home or self-care (01) ==
LOC: NAV ERS 16:43
DX: M79.672 Pain in left foot (principal); D50.9 Iron deficiency anemia, unspecified; F31.9 Bipolar disorder, unspecified; F17.210 Nicotine dependence, cigarettes, uncomplicated; Q61.3 Polycystic kidney, unspecified

== ENCOUNTER 2019-10-01 20:27 | Emergency (ER) | payer SELFPAY ==
[2019-10-01] MEDS ORDERED: Ondansetron ODT 4 MG TAB ONE (20:49)
[2019-10-01] MEDS ORDERED: Ibuprofen 200 MG TAB ONE (21:06)
[2019-10-01] MEDS ORDERED: Acetaminophen 325 MG TAB ONE (21:06)
[2019-10-01] MEDS ORDERED: Oseltamivir 75 MG CAP ONE (21:33)
== END 2019-10-01 21:33 | disposition home or self-care (01) ==
LOC: NAV ERS 20:27
DX: J10.1 Influenza due to other identified influenza virus with other respiratory manifestations (principal); D50.9 Iron deficiency anemia, unspecified; Q61.3 Polycystic kidney, unspecified; F31.9 Bipolar disorder, unspecified; F17.210 Nicotine dependence, cigarettes, uncomplicated
CPT/HCPCS: 87804; 99283; Q0162

== ENCOUNTER 2019-12-23 14:46 | Emergency (ER) | payer SELFPAY ==
[2019-12-23 15:29] LABS: Bilirubin Negative (Negative); Blood, Urine Negative (Negative); Clarity Clear (Clear); Glucose, Urine (Dipstick) Negative (Negative); Leukocyte Negative (Negative); Nitrite Negative (Negative); Protein, Urine (Dipstick) Negative (Neg-Trace)
[2019-12-23 15:32] LABS: Pregnancy Test - Urine (BHCG) Negative (Negative); Pregu Control Background? CLEAR/WHITE (CLR/WHITE); Pregu Control Bar Appear? YES (CONTROL BAR); Specific Gravity 1.025 (1.002-1.036)
== END 2019-12-23 15:48 | disposition home or self-care (01) ==
LOC: NAV ERS 14:46
DX: R10.30 Lower abdominal pain, unspecified (principal); D50.9 Iron deficiency anemia, unspecified; Q61.3 Polycystic kidney, unspecified; F31.9 Bipolar disorder, unspecified; F17.210 Nicotine dependence, cigarettes, uncomplicated; N83.209 Unspecified ovarian cyst, unspecified side; Z79.899 Other long term (current) drug therapy
CPT/HCPCS: 81003; 81025; 99284

== ENCOUNTER 2020-04-07 22:00 | Emergency (ER) | payer OTHER, SELFPAY ==
[2020-04-07] MEDS ORDERED: Ondansetron ODT 4 MG TAB ONE (22:55)
[2020-04-07 22:59] LABS: #Lymphocytes 2.3 thou/uL (1.20-3.40); #Neutrophils 2.4 thou/uL (1.40-6.50); %Basophils 1.1 % (0.0-1.0); %Eosinophils 0.8 % (0.0-10.0); %Lymphocytes 43.8 % (21.0-51.0); %Monocytes 9.4 % (0.0-10.0); Hemoglobin 10.1 g/dL (12.0-16.0); Manual Diff?? NO; Mean Corpuscular HGB CONC 29.1 g/dL (32.0-36.0); Mean Corpuscular Hemoglobin 22.2 pg (27.0-31.0); Mean Corpuscular Volume 76.3 fL (78.0-98.0); Mean Platelet Volume 7.2 fL (7.4-10.4); Platelet Count 219 thou/uL (130-400); RBC Distribution Width 14.9 % (11.5-14.5); Red Blood Cell (RBC) Count 4.56 mill/uL (4.20-5.40); White Blood Cell (WBC) Count 5.3 thou/uL (4.8-10.8)
[2020-04-07 23:00] LABS: #Basophils 0.1 thou/uL (0.0-0.2); #Monocytes 0.5 thou/uL (0.11-0.59)
[2020-04-07 23:02] LABS: Microcytosis SLIGHT = 6-15 cells (100X) (0-5/hpf)
== END 2020-04-07 23:47 | disposition home or self-care (01) ==
LOC: NAV ERS 22:00
DX: N93.8 Other specified abnormal uterine and vaginal bleeding (principal); R11.2 Nausea with vomiting, unspecified; D50.9 Iron deficiency anemia, unspecified; F31.9 Bipolar disorder, unspecified; F17.210 Nicotine dependence, cigarettes, uncomplicated; Z79.899 Other long term (current) drug therapy
CPT/HCPCS: 84702; 85025; 99284; Q0162

== ENCOUNTER 2020-10-26 03:54 | Emergency (ER) | payer BC, OTHER ==
[2020-10-26 04:19] LABS: Bilirubin Negative (Negative); Blood, Urine Large (Negative); Clarity Cloudy (Clear); Glucose, Urine (Dipstick) Negative (Negative); Ketone, Urine Negative (Negative); Leukocyte Moderate (Negative); Nitrite Negative (Negative); Protein, Urine (Dipstick) > or equal to 300 mg/dL (Neg-Trace); Specific Gravity, Urine 1.028 (1.002-1.036); Urobilinogen 0.2 mg/dL (Less than 2)
[2020-10-26 04:20] LABS: Pregnancy Test - Urine (BHCG) Negative (Negative); Pregu Control Background? CLEAR/WHITE (CLR/WHITE); Pregu Control Bar Appear? YES (CONTROL BAR); Specific Gravity 1.028 (1.002-1.036)
[2020-10-26 04:21] LABS: RBC/HPF 21-50 HPF (0-3); WBC/HPF Greater Than 50 HPF (0-3)
[2020-10-26 04:22] LABS: Bacteria/HPF 1+ HPF (None Seen); Squamous Epithelial 0-3 HPF (0-3)
[2020-10-26] MEDS ORDERED: Sulfameth/Trimethoprim DS 800-160mg TAB ONE (04:34)
== END 2020-10-26 04:40 | disposition home or self-care (01) ==
LOC: NAV ERS 03:54
DX: N39.0 Urinary tract infection, site not specified (principal); D50.9 Iron deficiency anemia, unspecified; F17.210 Nicotine dependence, cigarettes, uncomplicated; Z79.899 Other long term (current) drug therapy
CPT/HCPCS: 81003; 81015; 81025; 87086; 99284

== ENCOUNTER 2020-11-13 20:17 | Emergency (ER) | payer BC ==
[2020-11-13] MEDS ORDERED: Ketorolac Tromethamine 30 MG/ML VIAL ONE (20:48)
[2020-11-13] MEDS ORDERED: Sodium Chloride 0.9% 1,000 ML ONE (20:48)
[2020-11-13] MEDS ORDERED: Metoclopramide HCl 10 MG TAB ONE (20:48)
[2020-11-13] MEDS ORDERED: diphenhydrAMINE 50 MG/ML VIAL ONE (20:48)
[2020-11-13] MEDS ORDERED: Prochlorperazine 10 MG/2 ML VIAL ONE (21:00)
[2020-11-13 21:19] LABS: BHCG - Serum Negative (NEGATIVE); Pregs Control Bar Appear? YES (CONTROL BAR)
[2020-11-13 21:30] LABS: Anion Gap 12 mmol/L (10-20); BUN (Urea Nitrogen) 5 mg/dL (7.0-18.7); Calc. Creatinine Clearance 0 mL/min (70-130); Calcium 9.2 mg/dL (7.8-10.44); Carbon Dioxide 25 mmol/L (22-29); Chloride 103 mmol/L (98-107); Glucose 98 mg/dL (70-105); Potassium 3.4 mmol/L (3.5-5.1); Sodium 137 mmol/L (136-145)
[2020-11-13 21:44] LABS: Hemoglobin 9.3 g/dL (12.0-16.0); Mean Corpuscular HGB CONC 30.5 g/dL (32.0-36.0); Mean Corpuscular Hemoglobin 22.1 pg (27.0-31.0); Mean Corpuscular Volume 72.3 fL (78.0-98.0); Mean Platelet Volume 6.8 fL (7.4-10.4); Platelet Count 219 thou/uL (130-400); RBC Distribution Width 14.8 % (11.5-14.5); Red Blood Cell (RBC) Count 4.23 mill/uL (4.20-5.40); White Blood Cell (WBC) Count 4.6 thou/uL (4.8-10.8)
[2020-11-13 21:54] LABS: #Lymphocytes 1.8 thou/uL (1.20-3.40); #Monocytes 0.3 thou/uL (0.11-0.59); #Neutrophils 2.2 thou/uL (1.40-6.50); %Eosinophils 0.6 % (0.0-10.0); %Lymphocytes 41.2 % (21.0-51.0); %Monocytes 7.6 % (0.0-10.0); %Neutrophils 49.5 % (42.0-75.0); MDiff Complete? YES; Microcytosis SLIGHT = 6-15 cells (100X) (0-5/hpf); Ovalocytes SLIGHT = 2-5 cells (100X) (0-1/hpf)
== END 2020-11-13 22:17 | disposition home or self-care (01) ==
LOC: NAV ERS 20:17
DX: D64.9 Anemia, unspecified (principal); R51.9 Headache, unspecified; R42 Dizziness and giddiness; H53.9 Unspecified visual disturbance; F17.210 Nicotine dependence, cigarettes, uncomplicated
CPT/HCPCS: 80048; 84703; 85025; 93005; 96365; 96375; J0780; J1200; J1885; J7050

== ENCOUNTER 2020-12-13 19:49 | Emergency (ER) | payer BC ==
[2020-12-14 21:43] LABS: SARS-CoV-2 PCR by NAA Not Detected (NotDetected)
== END 2020-12-13 20:38 | disposition home or self-care (01) ==
LOC: NAV ERS 19:49
DX: M79.10 Myalgia, unspecified site (principal); R19.7 Diarrhea, unspecified; R50.9 Fever, unspecified; Z20.822 Contact with and (suspected) exposure to COVID-19; D50.9 Iron deficiency anemia, unspecified; F17.210 Nicotine dependence, cigarettes, uncomplicated
CPT/HCPCS: 87635; 87804; 99284; U0003; U0005

== ENCOUNTER 2021-04-10 18:51 | Emergency (ER) | payer BC ==
[2021-04-10 19:40] LABS: Bilirubin Negative (Negative); Blood, Urine Negative (Negative); Clarity Clear (Clear); Glucose, Urine (Dipstick) Negative (Negative); Ketone, Urine Trace mg/dL (Negative); Leukocyte Negative (Negative); Nitrite Negative (Negative); Protein, Urine (Dipstick) Trace mg/dL (Neg-Trace); Specific Gravity, Urine 1.025 (1.005-1.030); Urobilinogen 0.2 mg/dL (Less than 2)
[2021-04-10 19:41] LABS: Pregnancy Test - Urine (BHCG) Negative (Negative); Pregu Control Background? CLEAR/WHITE (CLR/WHITE); Pregu Control Bar Appear? YES (CONTROL BAR); Specific Gravity 1.025 (1.002-1.036)
[2021-04-11 18:29] LABS: SARS-CoV-2 PCR by NAA Not Detected (NotDetected)
== END 2021-04-10 20:58 | disposition home or self-care (01) ==
LOC: NAV ERS 18:51
DX: J06.9 Acute upper respiratory infection, unspecified (principal); R10.9 Unspecified abdominal pain; Z20.822 Contact with and (suspected) exposure to COVID-19; D50.9 Iron deficiency anemia, unspecified; F17.210 Nicotine dependence, cigarettes, uncomplicated
CPT/HCPCS: 81003; 81025; 87807; 99283; U0003; U0005

== ENCOUNTER 2021-05-16 21:58 | Emergency (ER) | payer BC | END 2021-05-16 22:42 | disposition home or self-care (01) | LOC: NAV ERS 21:58 | DX: R05 Cough (principal); B97.4 Respiratory syncytial virus as the cause of diseases classified elsewhere; F17.210 Nicotine dependence, cigarettes, uncomplicated | CPT/HCPCS: 99283 ==

== ENCOUNTER 2021-07-16 11:55 | Emergency (ER) | payer BC ==
[2021-07-16 12:25] LABS: #Basophils 0.1 thou/uL (0.0-0.2); #Lymphocytes 1.1 thou/uL (1.20-3.40); #Monocytes 0.3 thou/uL (0.11-0.59); #Neutrophils 1.7 thou/uL (1.40-6.50); %Basophils 1.6 % (0.0-1.0); %Eosinophils 0.9 % (0.0-10.0); %Lymphocytes 34.5 % (21.0-51.0); %Monocytes 10.3 % (0.0-10.0); %Neutrophils 52.8 % (42.0-75.0); Hemoglobin 8.2 g/dL (12.0-16.0); Mean Corpuscular HGB CONC 28.9 g/dL (32.0-36.0); Mean Corpuscular Hemoglobin 20.5 pg (27.0-31.0); Mean Platelet Volume 6.2 fL (7.4-10.4); Platelet Count 165 thou/uL (130-400); RBC Distribution Width 16.3 % (11.5-14.5); Red Blood Cell (RBC) Count 4.01 mill/uL (4.20-5.40); White Blood Cell (WBC) Count 3.1 thou/uL (4.8-10.8)
[2021-07-16 12:37] LABS: BHCG - Serum Negative (NEGATIVE); Pregs Control Bar Appear? YES (CONTROL BAR)
[2021-07-16 12:44] LABS: ALT (SGPT) 12 U/L (8-55); AST (SGOT) 24 U/L (5-34); Albumin 3.7 g/dL (3.5-5.0); Alkaline Phosphatase 79 U/L (40-110); Anion Gap 9 mmol/L (10-20); BUN (Urea Nitrogen) 5 mg/dL (7.0-18.7); Bilirubin, Total 0.3 mg/dL (0.2-1.2); Calc. Creatinine Clearance 0 mL/min (70-130); Calcium 8.9 mg/dL (7.8-10.44); Carbon Dioxide 25 mmol/L (22-29); Chloride 105 mmol/L (98-107); Globulin 3.8 g/dL (2.4-3.5); Glucose 90 mg/dL (70-105); Lipase 34 U/L (8-78); Potassium 3.4 mmol/L (3.5-5.1); Protein, Total 7.5 g/dL (6.0-8.3); Sodium 136 mmol/L (136-145)
[2021-07-16 12:58] LABS: Bilirubin Negative (Negative); Blood, Urine Moderate (Negative); Clarity Clear (Clear); Glucose, Urine (Dipstick) Negative (Negative); Ketone, Urine Negative (Negative); Leukocyte Negative (Negative); Nitrite Negative (Negative); Protein, Urine (Dipstick) Negative (Neg-Trace); Specific Gravity, Urine 1.015 (1.005-1.030); Urobilinogen 0.2 mg/dL (Less than 2); pH, Urine 7.5 (5.0-9.0)
[2021-07-16 13:03] LABS: RBC/HPF 0-3 HPF (0-3); Squamous Epithelial 0-3 HPF (0-3)
== END 2021-07-16 13:15 | disposition home or self-care (01) ==
LOC: NAV ERS 11:55
DX: N92.0 Excessive and frequent menstruation with regular cycle (principal); D50.9 Iron deficiency anemia, unspecified; F17.210 Nicotine dependence, cigarettes, uncomplicated
CPT/HCPCS: 80053; 81003; 81015; 83690; 84703; 85025; 99284

== ENCOUNTER 2021-08-19 10:38 | Emergency (ER) | payer BC | END 2021-08-19 11:43 | disposition home or self-care (01) | LOC: NAV ERS 10:38 | DX: R05.9 Cough, unspecified (principal); D50.9 Iron deficiency anemia, unspecified; F17.210 Nicotine dependence, cigarettes, uncomplicated; Z79.899 Other long term (current) drug therapy | CPT/HCPCS: 99283 ==

== ENCOUNTER 2022-06-25 07:34 | Emergency (ER) | payer BC ==
[2022-06-25] MEDS ORDERED: Boostrix 0.5 ML (Tdap) VIAL (>/=7 yrs of age) ONE (08:25)
[2022-06-25 08:29] LABS: Bilirubin Negative (Negative); Blood, Urine Negative (Negative); Clarity Clear (Clear); Glucose, Urine (Dipstick) Negative (Negative); Ketone, Urine Negative (Negative); Leukocyte Negative (Negative); Nitrite Negative (Negative); Protein, Urine (Dipstick) Negative (Neg-Trace); Specific Gravity, Urine 1.015 (1.005-1.030); Urobilinogen 0.2 mg/dL (Less than 2); pH, Urine 6.5 (5.0-9.0)
[2022-06-25 08:33] LABS: Pregnancy Test - Urine (BHCG) Negative (Negative); Pregu Control Background? CLEAR/WHITE (CLR/WHITE); Pregu Control Bar Appear? YES (CONTROL BAR); Specific Gravity 1.015 (1.002-1.036)
[2022-06-25 08:39] LABS: #Basophils 0.1 thou/uL (0.0-0.2); #Lymphocytes 1.5 thou/uL (1.20-3.40); #Monocytes 0.4 thou/uL (0.11-0.59); #Neutrophils 2.4 thou/uL (1.40-6.50); %Basophils 1.3 % (0.0-1.0); %Eosinophils 0.7 % (0.0-10.0); %Lymphocytes 34.7 % (21.0-51.0); %Monocytes 9.3 % (0.0-10.0); Hemoglobin 9.2 g/dL (12.0-16.0); Mean Corpuscular HGB CONC 28.9 g/dL (32.0-36.0); Mean Corpuscular Hemoglobin 20.4 pg (27.0-31.0); Mean Corpuscular Volume 70.8 fL (78.0-98.0); Mean Platelet Volume 6.9 fL (7.4-10.4); Platelet Count 211 thou/uL (130-400); RBC Distribution Width 15.6 % (11.5-14.5); Red Blood Cell (RBC) Count 4.48 mill/uL (4.20-5.40); White Blood Cell (WBC) Count 4.4 thou/uL (4.8-10.8)
[2022-06-25 08:41] LABS: ALT (SGPT) 13 U/L (8-55); AST (SGOT) 19 U/L (5-34); Albumin 4.5 g/dL (3.5-5.0); Alkaline Phosphatase 77 U/L (40-110); Anion Gap 15 mmol/L (10-20); BUN (Urea Nitrogen) 9 mg/dL (7.0-18.7); Bilirubin, Total 0.3 mg/dL (0.2-1.2); Calc. Creatinine Clearance 0 mL/min (70-130); Calcium 9.1 mg/dL (7.8-10.44); Carbon Dioxide 26 mmol/L (22-29); Chloride 103 mmol/L (98-107); Estimated GFR 100; Globulin 3.5 g/dL (2.4-3.5); Glucose 99 mg/dL (70-105); Potassium 3.5 mmol/L (3.5-5.1); Sodium 140 mmol/L (136-145)
[2022-06-25] MEDS ORDERED: cefTRIAXone\\ROCEPHIN 250 MG VIAL ONE (09:12)
[2022-06-25] MEDS ORDERED: Water For Inject, Bacteriostat 30 ML ONE (09:12)
[2022-06-26 12:51] LABS: Chlamydia by PCR Not Detected (NotDetected); GC by PCR Not Detected (NotDetected)
== END 2022-06-25 09:40 | disposition home or self-care (01) ==
LOC: NAV ERS 07:34
DX: N91.2 Amenorrhea, unspecified (principal); D50.9 Iron deficiency anemia, unspecified; F17.210 Nicotine dependence, cigarettes, uncomplicated
CPT/HCPCS: 80053; 81003; 81025; 85025; 87480; 87491; 87510; 87591; 87660; 90715; 96372; 99284; J0696

== ENCOUNTER 2022-09-02 14:10 | Emergency (ER) | payer BC | END 2022-09-02 16:16 | disposition home or self-care (01) | LOC: NAV ERS 14:10 | DX: J06.9 Acute upper respiratory infection, unspecified (principal); F17.210 Nicotine dependence, cigarettes, uncomplicated | CPT/HCPCS: 87804; 99283 ==